=== PATIENT | male | born 1990 | race Caucasian/White ===

== ENCOUNTER 2023-09-24 18:57 | Emergency (ER) | payer SELFPAY ==
[~2023-09-24] VITALS: Ht 175.3 cm; Wt 75.0 kg
[2023-09-24 19:03] VITALS: BP 127/80; PULSE 97; RESP 18; TEMP 98.3; O2SAT 98
[2023-09-24 20:28] LABS: BASOPHILS % 0.9 % (0.0-2.0); DIFFERENTIAL COMMENT 0; HEMATOCRIT. 34.3 % (42.0-52.0); HEMOGLOBIN. 11.6 g/dL (14.0-18.0); LYMPHOCYTES % 17.9 % (20.0-50.0); MEAN CORPUSCULAR HEMOGLOBIN 34.7 pg (28.0-32.0); MEAN CORPUSCULAR HGB CONC 33.9 g/dL (31.0-37.0); MEAN CORPUSCULAR VOLUME 102.3 fL (80.0-94.0); MEAN PLATELET VOLUME 10.6 fl (7.4-10.4); MONOCYTES % 7.3 % (2.0-8.0); NEUTROPHILS % 73.9 % (40.0-76.0); PLATELET 122 x1000/uL (130-400); RED BLOOD CELL COUNT 3.36 mill/uL (4.7-6.1); RED CELL DISTRIBUTION WIDTH 13.6 % (11.6-14.6); WHITE BLOOD COUNT 10.6 x1000/uL (4.5-11.0)
[2023-09-24 20:40] LABS: ALANINE AMINOTRANSFERASE 68 IU/L (10-49); ALBUMIN 3.6 g/dL (3.2-4.8); ASPARTATE AMINOTRANSFERASE 273 IU/L (<34); CALCIUM 8.2 mg/dL (8.7-10.4); CARBON DIOXIDE 28 mEq/L (21-32); CHLORIDE 103 mEq/L (98-107); CREATININE 0.4 mg/dL (0.6-1.3); GLUCOSE 115 mg/dL (70-105); PROTEIN TOTAL 8.2 g/dL (6.0-8.3); SODIUM 140 mEq/L (136-145); TROPONIN I HIGH SENSITIVITY 6 ng/L (3.0-53); UREA NITROGEN BLOOD 7 mg/dL (9-23)
[2023-09-24 20:42] LABS: POTASSIUM 2.8 mEq/L (3.5-5.1)
== END 2023-09-25 00:19 | disposition left against medical advice (07) ==
LOC: ER 18:57
DX: R07.89 Other chest pain (principal); Z53.21 Procedure and treatment not carried out due to patient leaving prior to being seen by health care provider
CPT/HCPCS: 36415; 71045; 80053; 84484; 85025; 93005; 99281; 99285

== ENCOUNTER 2023-10-20 08:49 | Emergency (ER) | payer SELFPAY ==
[~2023-10-20] VITALS: Ht 170.2 cm; Wt 65.8 kg
[2023-10-20 09:04] VITALS: O2SAT 100
[2023-10-20 09:12] LABS: BASOPHILS % 0.5 % (0.0-2.0); EOSINOPHILS % 0.1 % (0.0-5.0); HEMATOCRIT. 35.4 % (42.0-52.0); HEMOGLOBIN. 12.5 g/dL (14.0-18.0); LYMPHOCYTES % 8.2 % (20.0-50.0); MEAN CORPUSCULAR HEMOGLOBIN 34.3 pg (28.0-32.0); MEAN CORPUSCULAR HGB CONC 35.3 g/dL (31.0-37.0); MEAN CORPUSCULAR VOLUME 97.4 fL (80.0-94.0); MEAN PLATELET VOLUME 9.2 fl (7.4-10.4); MONOCYTES % 4.4 % (2.0-8.0); NEUTROPHILS % 86.8 % (40.0-76.0); PLATELET 163 x1000/uL (130-400); RED BLOOD CELL COUNT 3.63 mill/uL (4.7-6.1); RED CELL DISTRIBUTION WIDTH 13.6 % (11.6-14.6); WHITE BLOOD COUNT 10.7 x1000/uL (4.5-11.0)
[2023-10-20 09:29] LABS: ALANINE AMINOTRANSFERASE 35 IU/L (10-49); ALBUMIN 3.8 g/dL (3.2-4.8); ASPARTATE AMINOTRANSFERASE 172 IU/L (<34); BILIRUBIN TOTAL 2.2 mg/dL (0.1-1.0); CALCIUM 8.8 mg/dL (8.7-10.4); CARBON DIOXIDE 22 mEq/L (21-32); CHLORIDE 105 mEq/L (98-107); CREATININE 0.5 mg/dL (0.6-1.3); GLUCOSE 102 mg/dL (70-105); POTASSIUM 3.8 mEq/L (3.5-5.1); SODIUM 139 mEq/L (136-145); UREA NITROGEN BLOOD 6 mg/dL (9-23)
[2023-10-20] MEDS: SODIUM CHLORIDE 0.9% 1,000 ML IV ONE (10:25)
[2023-10-20] MEDS: DIAZEPAM 5 MG/ML 2ML SYR IV ONE (10:25)
[2023-10-20 12:04] LABS: CLARITY URINE CLEAR (CLEAR); COLOR URINE DARK YELLOW (YELLOW); GLUCOSE URINE NEGATIVE (NEGATIVE); KETONES URINE 1+ (NEGATIVE); LEUKOCYTE ESTERASE URINE NEGATIVE (NEGATIVE); NITRITE URINE NEGATIVE (NEGATIVE); OCCULT BLOOD URINE NEGATIVE (NEGATIVE); PROTEIN URINE NEGATIVE (NEGATIVE); SPECIFIC GRAVITY URINE 1.018 (1.005-1.030)
[2023-10-20 12:39] LABS: *AMPHETAMINES SCREEN URINE NEGATIVE (NEGATIVE); *BARBITURATES SCREEN URINE NEGATIVE (NEGATIVE); *BENZODIAZEPINES SCREEN URINE PRESUMPTIVE POSITIVE (NEGATIVE); *COCAINE SCREEN URINE NEGATIVE (NEGATIVE); CANNABINOID URINE SCREEN PRESUMPTIVE POSITIVE (NEGATIVE); ECSTASY MDMA SCREEN URINE NEGATIVE (NEGATIVE); METHADONE URINE SCREEN Neg (NEGATIVE); OPIATES URINE SCREEN NEGATIVE (NEGATIVE); PHENCYCLIDINE URINE SCREEN NEGATIVE (NEGATIVE)
[2023-10-20 13:19] VITALS: BP 114/71; PULSE 95; RESP 25; TEMP 98
== END 2023-10-20 13:23 | disposition home or self-care (01) ==
LOC: ER 08:49
DX: F10.239 Alcohol dependence with withdrawal, unspecified (principal); Y90.6 Blood alcohol level of 120-199 mg/100 ml
CPT/HCPCS: 80053; 80305; 81003; 80320; 83690; 85025; 36415; 93005; 96361; 96374; 99285; J3360; J7030; G0480

== ENCOUNTER 2023-12-27 19:54 | Inpatient (IN) | payer MEDICAID ==
[~2023-12-27] VITALS: Ht 175.3 cm; Wt 67.1 kg
[2023-12-27 20:09] LABS: EOSINOPHILS % 0.3 % (0.0-5.0); HEMATOCRIT. 42.5 % (42.0-52.0); HEMOGLOBIN. 14.1 g/dL (14.0-18.0); MEAN CORPUSCULAR HEMOGLOBIN 32.6 pg (28.0-32.0); MEAN CORPUSCULAR VOLUME 98.7 fL (80.0-94.0); MEAN PLATELET VOLUME 11.4 fl (7.4-10.4); MONOCYTES % 10.5 % (2.0-8.0); NEUTROPHILS % 49.2 % (40.0-76.0); PLATELET 147 x1000/uL (130-400); RED BLOOD CELL COUNT 4.31 mill/uL (4.7-6.1); RED CELL DISTRIBUTION WIDTH 13.3 % (11.6-14.6); WHITE BLOOD COUNT 14.1 x1000/uL (4.5-11.0)
[2023-12-27 20:16] LABS: CHLORIDE 97 mEq/L (98-107); POTASSIUM 2.9 mEq/L (3.5-5.1); SODIUM 138 mEq/L (136-145)
[2023-12-27 20:17] LABS: CALCIUM 9.6 mg/dL (8.7-10.4); CARBON DIOXIDE 17 mEq/L (21-32)
[2023-12-27 20:22] LABS: CREATININE 0.8 mg/dL (0.6-1.3); GLUCOSE 113 mg/dL (70-105); UREA NITROGEN BLOOD 12 mg/dL (9-23)
[2023-12-27] MEDS: MIDAZOLAM HCL 2 MG/2 ML VIAL IV ONE (20:25)
[2023-12-27] MEDS: SODIUM CHLORIDE 0.9% 1,000 ML IV ONE (20:33)
[2023-12-27 20:38] LABS: ALANINE AMINOTRANSFERASE 48 IU/L (10-49); ALBUMIN 4.5 g/dL (3.2-4.8); ASPARTATE AMINOTRANSFERASE 151 IU/L (<34); BILIRUBIN DIRECT 2.1 mg/dL (<=3.0); BILIRUBIN TOTAL 4.5 mg/dL (0.1-1.0); PROTEIN TOTAL 8.2 g/dL (6.0-8.3)
[2023-12-27 20:47] LABS: ETHANOL BLOOD < 10 mg/dL (<10)
[2023-12-27] MEDS: LEVETIRACETAM 1000MG PREMIX 100 ML IV ONE (20:50)
[2023-12-27] MEDS: LORAZEPAM 2MG/ML INJ IV ONE ×2 (21:09→21:36)
[2023-12-27] MEDS: LEVETIRACETAM 500MG PREMIX 100 ML IV ONE (21:40)
[2023-12-27] MEDS ORDERED: DIAZEPAM 5 MG/ML 2ML SYR IV ONE (22:00)
[2023-12-27] MEDS: KCL 20MEQ/100ML PREMIX 100 ML IV ONE (22:30)
[2023-12-27] MEDS: DIAZEPAM 5 MG/ML 2ML SYR IV NR (22:50)
[2023-12-28] VITALS (42 sets, daily range): BP systolic 92–150; BP diastolic 57–99; PULSE 60–107; RESP 9–27; TEMP 97.9–99
[2023-12-28] MEDS ORDERED: DEXMEDETOMIDINE 400 MCG/100 ML 100 ML IV PRN (00:15)
[2023-12-28] MEDS: DEXMEDETOMIDINE 400 MCG/100 ML 100 ML IV PRN (01:03)
[2023-12-28] MEDS ORDERED: ONDANSETRON HCL 4MG/2ML INJ IV PRN (01:15)
[2023-12-28] MEDS ORDERED: CLONIDINE 0.1MG TABLET PO PRN (01:15)
[2023-12-28] MEDS ORDERED: IPRATROPIUM/ALBUTEROL 0.5-3(2.5)MG/3ML NEB HHN PRN (01:15)
[2023-12-28] MEDS ORDERED: GUAIFENESIN 200MG/10ML SUGAR FREE UDC PO PRN (01:15)
[2023-12-28] MEDS ORDERED: DOCUSATE SODIUM 100MG CAPSULE PO PRN (01:15)
[2023-12-28] MEDS ORDERED: LORAZEPAM 0.5MG TABLET PO PRN (01:15)
[2023-12-28 01:46] LABS: ALBUMIN 3.8 g/dL (3.2-4.8); LACTIC ACID 2.8 mmol/L (0.4-2.0); PHOSPHORUS 2.8 mg/dL (2.5-4.9)
[2023-12-28] MEDS: MVI, ADULT NO.1 10 ML, FOLIC ACID 1 MG, THIAMINE HCL 100 MG in SODIUM CHLORIDE 0.9% 1,0... IV SCH (02:56)
[2023-12-28 04:31] LABS: HEMATOCRIT 36.2 % (42.0-52.0); HEMOGLOBIN 12.3 g/dL (14.0-18.0); MEAN CORPUSCULAR HEMOGLOBIN 32.4 pg (28.0-32.0); MEAN CORPUSCULAR HGB CONC 34.1 g/dL (31.0-37.0); MEAN CORPUSCULAR VOLUME 95.1 fL (80.0-94.0); PLATELET 107 x1000/uL (130-400); RED CELL DISTRIBUTION WIDTH 13.4 % (11.6-14.6); WHITE BLOOD COUNT 10.2 x1000/uL (4.5-11.0)
[2023-12-28 04:36] LABS: CHLORIDE 106 mEq/L (98-107); POTASSIUM 3.3 mEq/L (3.5-5.1); SODIUM 141 mEq/L (136-145)
[2023-12-28 04:37] LABS: CALCIUM 8.1 mg/dL (8.7-10.4); CARBON DIOXIDE 26 mEq/L (21-32)
[2023-12-28 04:42] LABS: GLUCOSE 107 mg/dL (70-105); UREA NITROGEN BLOOD 8 mg/dL (9-23)
[2023-12-28 04:44] LABS: CREATINE KINASE 545 IU/L (46-171)
[2023-12-28 04:51] LABS: FOLIC ACID (FOLATE) SERUM > 20.00 ng/mL (>5.38)
[2023-12-28 05:01] LABS: HEPATITIS B SURFACE ANTIGEN NEGATIVE (Negative); VITAMIN B12 SERUM > 2000 pg/mL (211-911)
[2023-12-28 05:02] LABS: CREATININE 0.5 mg/dL (0.6-1.3)
[2023-12-28 05:04] LABS: TROPONIN I HIGH SENSITIVITY 62 ng/L (3.0-53)
[2023-12-28 05:22] LABS: HEPATITIS A AB IGM NEGATIVE (Negative); HEPATITIS B CORE AB IGM NEGATIVE (Negative)
[2023-12-28 05:23] LABS: HEPATITIS C AB NON REACTIVE (Neg) (Negative)
[2023-12-28] MEDS ORDERED: POTASSIUM CHLORIDE 20 MEQ in DEXT 5% WATER 90 ML IV ONE (06:45)
[2023-12-28] MEDS ORDERED: LIDOCAINE HCL 1% 10 MG/ML 10ML VIAL ONE (09:14)
[2023-12-28] MEDS: PANTOPRAZOLE SODIUM 40 MG/VIAL IV SCH (09:42)
[2023-12-28] MEDS: MAGNESIUM 1 G PREMIX 100 ML IV NR (10:37)
[2023-12-28] MEDS: KCL 20MEQ/100ML PREMIX 100 ML IV NR (10:37)
[2023-12-28] MEDS ORDERED: LORAZEPAM 1MG TABLET PO PRN (16:15)
[2023-12-28] MEDS ORDERED: MIDAZOLAM HCL 100 MG in SODIUM CHLORIDE 0.9% 80 ML IV PRN (17:30)
[2023-12-28] MEDS: POTASSIUM CHLORIDE 20MEQ TABLET SR PO NR (17:44)
[2023-12-28 17:49] LABS: TROPONIN I HIGH SENSITIVITY 15 ng/L (3.0-53)
[2023-12-28 17:50] LABS: CREATINE KINASE 495 IU/L (46-171)
[2023-12-28] MEDS: SODIUM CHLORIDE 0.45% 1,000 ML IV SCH (17:55)
[2023-12-28] MEDS: FOLIC ACID 1 MG, THIAMINE HCL 100 MG, MVI, ADULT NO.1 10 ML in DEXTROSE 5% WATER 1,000 ML IV ONE (18:58)
[2023-12-28] MEDS: MIDAZOLAM 100MG/100ML PREMIX IV PRN (19:00)
[2023-12-28] MEDS: CHLORDIAZEPOXIDE 25MG CAPSULE PO SCH (21:27)
[2023-12-29] VITALS (44 sets, daily range): BP systolic 99–148; BP diastolic 59–107; PULSE 68–117; RESP 14–47; TEMP 97.8–99.2; O2SAT 99
[2023-12-29] MEDS: MAGNESIUM 1 G PREMIX 100 ML IV NR (01:08)
[2023-12-29 04:17] LABS: HEMATOCRIT 38.8 % (42.0-52.0); HEMOGLOBIN 13.1 g/dL (14.0-18.0); MEAN CORPUSCULAR HEMOGLOBIN 33.1 pg (28.0-32.0); MEAN CORPUSCULAR HGB CONC 33.8 g/dL (31.0-37.0); PLATELET 70 x1000/uL (130-400); RED BLOOD CELL COUNT 3.96 mill/uL (4.7-6.1); RED CELL DISTRIBUTION WIDTH 12.8 % (11.6-14.6); WHITE BLOOD COUNT 6.6 x1000/uL (4.5-11.0)
[2023-12-29 04:53] LABS: CALCIUM 8.7 mg/dL (8.7-10.4); CARBON DIOXIDE 26 mEq/L (21-32); CHLORIDE 105 mEq/L (98-107); POTASSIUM 4.2 mEq/L (3.5-5.1); SODIUM 138 mEq/L (136-145)
[2023-12-29 04:59] LABS: AMMONIA 83 uMol/L (<32)
[2023-12-29 04:59] LABS: CREATININE 0.5 mg/dL (0.6-1.3); GLUCOSE 85 mg/dL (70-105); UREA NITROGEN BLOOD 7 mg/dL (9-23)
[2023-12-29 05:00] LABS: CREATINE KINASE 539 IU/L (46-171)
[2023-12-29 05:01] LABS: PHOSPHORUS 1.5 mg/dL (2.5-4.9)
[2023-12-29] MEDS ORDERED: SODIUM PHOSPHATE 15 MMOL in DEXT 5% WATER 245 ML IV ONE (08:15)
[2023-12-29] MEDS: LACTULOSE 20G/30ML UDC PO NR (08:38)
[2023-12-29] MEDS: LORAZEPAM 2MG/ML INJ IV PRN (13:27)
[2023-12-29] MEDS ORDERED: LORAZEPAM 2MG/ML INJ IV PRN (14:15)
[2023-12-29] MEDS: POTASSIUM PHOSPHATE 20MMOL in DEXT 5% WATER 250ML IV NR (16:56)
[2023-12-29] MEDS ORDERED: CHLORDIAZEPOXIDE 25MG CAPSULE PO SCH (22:00)
== END 2023-12-29 22:15 | disposition left against medical advice (07) | DRG 52 ==
LOC: ER 19:54 → MICUSO 21:34 → 5EST 12-29 18:05 → UNDODISIN 12-29 22:15
PROVIDERS: ADMIT Hospitalist; ATTEND Hospitalist
PROC: 02HV33Z Insertion of Infusion Device into Superior Vena Cava, Percutaneous Approach (ICD-10-PCS; principal; 2023-12-28)
PROC: B548ZZA Ultrasonography of Superior Vena Cava, Guidance (ICD-10-PCS; 2023-12-28)
DX: G92.8 Other toxic encephalopathy (principal); I21.A1 Myocardial infarction type 2; F10.221 Alcohol dependence with intoxication delirium; M62.82 Rhabdomyolysis; D72.829 Elevated white blood cell count, unspecified; E11.9 Type 2 diabetes mellitus without complications; E87.6 Hypokalemia; D75.89 Other specified diseases of blood and blood-forming organs; F10.231 Alcohol dependence with withdrawal delirium; K74.60 Unspecified cirrhosis of liver; R56.9 Unspecified convulsions; W18.30XA Fall on same level, unspecified, initial encounter; Y90.0 Blood alcohol level of less than 20 mg/100 ml; K76.0 Fatty (change of) liver, not elsewhere classified; Z53.29 Procedure and treatment not carried out because of patient's decision for other reasons; Y93.89 Activity, other specified; Y92.89 Other specified places as the place of occurrence of the external cause; Y99.8 Other external cause status
CPT/HCPCS: 36415; 36573; 71045; 76700; 80048; 80076; 80320; 82040; 82140; 82550; 82607; 82746; 82962; 83605; 83735; 84100; 84484; 85025; 85027; 86705; 86709; 87340; 93005; 99291; C1725; C9113; J1953; J2060; J2250; J3411; J3475; J3480; J3490; J7030; J7060; J7070; Q9957; G0480